=== PATIENT | female | born 2000 | race Caucasian/White ===

== ENCOUNTER → 2020-08-23 12:40 | Outpatient (CLI) | payer MEDICAID ==
[2020-08-23 15:27] LABS: NITRITE NEGATIVE (NEGATIVE)
[2020-08-23 15:28] LABS: BILIRUBIN NEGATIVE (NEGATIVE); KETONE MODERATE mg/dL (NEGATIVE); UROBILINOGEN NORMAL mg/dL (< 2)
== END | disposition home or self-care (01) ==
LOC: D.LDO 12:40
PROVIDERS: Student in an Organized Health Care Education/Training Program; ATTEND Obstetrics & Gynecology
DX: O36.8190 Decreased fetal movements, unspecified trimester, not applicable or unspecified (principal)

== ENCOUNTER 2020-08-27 09:28 | Outpatient (CLI) | payer MEDICAID | END 2020-08-27 10:25 | disposition home or self-care (01) | LOC: D.LDO 09:28 | PROVIDERS: ATTEND Obstetrics & Gynecology | DX: O40.9XX0 Polyhydramnios, unspecified trimester, not applicable or unspecified (principal) ==

== ENCOUNTER 2020-08-30 09:04 | Outpatient (CLI) | payer MEDICAID | END 2020-08-30 13:31 | disposition home or self-care (01) | LOC: D.LDO 09:04 | PROVIDERS: ATTEND Obstetrics & Gynecology | DX: O35.9XX0 Maternal care for (suspected) fetal abnormality and damage, unspecified, not applicable or unspecified (principal) ==

== ENCOUNTER → 2020-09-03 09:30 | Outpatient (CLI) | payer MEDICAID | END | disposition home or self-care (01) | LOC: D.LDO 09:30 | PROVIDERS: ATTEND Obstetrics & Gynecology | DX: O26.899 Other specified pregnancy related conditions, unspecified trimester (principal) ==

== ENCOUNTER 2020-09-26 09:45 | Outpatient (CLI) | payer MEDICAID | END 2020-09-26 10:36 | disposition home or self-care (01) | LOC: D.LDO 09:45 | PROVIDERS: ATTEND Obstetrics & Gynecology | DX: O36.8190 Decreased fetal movements, unspecified trimester, not applicable or unspecified (principal) ==

== ENCOUNTER 2020-09-27 10:11 | Outpatient (CLI) | payer MEDICAID ==
[2020-10-01 05:28] VITALS: BMI 45.0
== END 2020-09-27 14:02 | disposition home or self-care (01) ==
LOC: D.LDO 10:11
PROVIDERS: ATTEND Student in an Organized Health Care Education/Training Program
DX: O47.9 False labor, unspecified (principal)

== ENCOUNTER 2020-10-01 04:57 | Inpatient (IN) | payer MEDICAID ==
[~2020-10-01] VITALS: Ht 162.6 cm; Wt 118.8 kg
[2020-10-01 05:28] VITALS: BP 138/81; Ht 162.6 cm; Wt 118.8 kg
[2020-10-01 06:38] LABS: HEMATOCRIT 31.1 % (36.0-48.0); HEMOGLOBIN 9.4 g/dL (12-16); MCH 22.5 pg (26.0-34.0); MCHC 30.2 g/dL (31.0-37.0); MCV 74.4 fL (80.0-100.0); MEAN PLATELET VOLUME 11.6 fL (7.4-10.4); RBC 4.18 10x6/uL (4.00-5.40); RDW 15.7 % (11.5-14.5); WBC 9.8 10x3/uL (4.8-10.8)
[2020-10-01 06:41] LABS: UDS - AMPHET NEGATIVE QUAL (NEGATIVE); UDS - BARB NEGATIVE QUAL (NEGATIVE); UDS - BENZO NEGATIVE QUAL (NEGATIVE); UDS - COCAINE NEGATIVE QUAL (NEGATIVE); UDS - OPIATE NEGATIVE QUAL (NEGATIVE); UDS - PCP NEGATIVE QUAL (NEGATIVE); UDS - THC NEGATIVE QUAL (NEGATIVE)
[2020-10-02 08:13] LABS: RAPID PLASMA REAGIN Non Reactive (Non Reactive)
[2020-10-02 18:03] VITALS: BP 147/75
--- NOTE | 2020-10-02 18:05 | NUR ---
RECEIVED PT FROM PACU VIA BED. PT AWAKE, ALERT, ORIENTED X3. IV OF LR WITH PITOCIN INFUSING TO GRAVITY; PRBC INFUSING VIA IVP @ 125CC/HR. ABDOMINAL DRESSING INTACT WITHOUT DRAINAGE. KENNEDY CATHETER SECURED TO LEG WITH STAT LOCK DEVICE. KENNEDY DRAINING CONCENTRATED, DARK CLEAR URINE. SCD'S IN PLACE AND ATTACHED TO MACHINE; MACHINE CYCLING. PT AND ORIENTED TO ROOM. BED PLACED IN LOW POSITION WITH SIDE RAILS UP X2. CALL LIGHT WITHIN REACH.
[2020-10-02 19:00] VITALS: BP 141/87
[2020-10-02 19:10] VITALS: BP 140/83
--- NOTE | 2020-10-02 19:15 | NUR ---
REPORT GIVEN BY UDAY WHITFIELD.
[2020-10-02 19:20] VITALS: BP 141/81
--- NOTE | 2020-10-02 19:25 | NUR ---
WALKING ROUNDS DONE. PT C/O PAIN. INSTRUCTED PT TO PUSH HER REAL ESTATE SITE ANALYST BUTTON. INCISION LOOKS GOOD WITH NO DRAINAGE. FUNDUS FIRM. SCD'S IN PLACE. IV IS IN THE LEFT HAND. SHE HAD ONE UNIT OF BLOOD THAT IS NOW FINISHED. SHE IS NOW GETTING NS AT 125 HR. PT MOTHER IS STAYING WITH HER. CALL LIGHT IS WITHIN REACH AND SIDERAILS X 2 ARE UP.
[2020-10-02 19:45] VITALS: BP 140/81
--- NOTE | 2020-10-02 20:28 | NUR ---
PT IS BREAST FEEDING AT THIS TIME. NO C/O.
--- NOTE | 2020-10-02 22:00 | NUR ---
PT IN BED HOLDING HER BABY. BONDING BETWEEN THE TWO IS GREAT. PT STILL HAS HER KENNEDY CATHETER DRAINING AT BEDSIDE. PT IS USING HER PLUG WIRER, A MATTER OF FACT SHE HAS HER CELL PHONE ALARM SET FOR EVERY 10 MINUTES NOT TO MISS A DOSE. SHE STATES HER PAIN LEVEL IS A THREE. SHE IS MOVING ABOUT IN BED VERY WELL. SHE USES HER IS WHEN ASKED.
[2020-10-02 22:07] LABS: BASOPHILS 0 % (0-2); EOSINOPHILS 0 % (0-7); HEMATOCRIT 33.8 % (36.0-48.0); IMMATURE GRANULOCYTES 0.1 % (0-5); LYMPHOCYTE ABS# 1.58 10x3/uL (1.18-3.74); LYMPHOCYTES 18.4 % (15-50); MCH 30.4 pg (26.0-34.0); MEAN PLATELET VOLUME 10.8 fL (7.4-10.4); MONOCYTES 10.1 % (2-11); NEUTROPHIL ABS# 6.13 10x3/uL (1.56-6.13); NEUTROPHILS 71.4 % (40-80); PLATELET COUNT 295 10x3/uL (130-400); RBC 3.78 10x6/uL (4.00-5.40); RDW 13.6 % (11.5-14.5); WBC 8.6 10x3/uL (4.8-10.8)
[2020-10-02 22:14] LABS: HEMOGLOBIN 11.5 g/dL (12-16); MCV 89.4 fL (80.0-100.0)
[2020-10-03] VITALS (14 sets, daily range): BP systolic 121–145; BP diastolic 45–99
--- NOTE | 2020-10-03 | NUR ---
PT STILL HOLDING SLEEPING BABY. I SUGGESTED THAT SHE PUT THE BABY IN HIS CRIB AND SHE TRY TO GET SOME SLEEP. SHE STATES THAT ITS ALMOST TIME TO FEED HIM AGAIN. VS TAKEN AND RECORDED. PT IS DRINKING ALOT OF WATER. STATES HER MOUTH IS VERY DRY.
--- NOTE | 2020-10-03 02:00 | NUR ---
ROUNDS MADE. PT ASKED IF WOULD RETAPE HER IV. I TOOK ALL THE TAPE OFF AND RETAPED. IV SITE LOOKS GOOD. NO REDNESS.
--- NOTE | 2020-10-03 03:01 | NUR ---
PT MOTIONED FOR ME TO COME INTO HER ROOM. SHE STATED SHE THOUGHT HER IV HAD COME OUT A LITTLE AND COULD I RETAPE IT. SHE ALSO SAID SHE GOT HER HAND TANGLED IN A BLANKET AND THE WHOLE DRESSING FLIPPED BACK. WHEN I SAW THE IV SITE THE CATHETER WAS OUT. I TOLD HER THAT SINCE SHE HAS A RAKING MACHINE OPERATOR PUMP THAT WE'D NEED TO RESTART THE IV SO SHE COULD GET PAIN MEDS. SHE RELUNCTANTLY AGREED.
--- NOTE | 2020-10-03 03:45 | NUR ---
20 GAUGE IV CATHETER PLACED TO RIGHT FOREARM AT THIS TIME WITHOUT INCIDENT.
--- NOTE | 2020-10-03 04:00 | NUR ---
PT IS RESTING. BABY OUT OF ROOM TO THE NURSERY. VS TAKEN. NO C/O
--- NOTE | 2020-10-03 05:45 | NUR ---
KENNEDY BAG EMPTIED WITH 700 ML OBTAINED. THE URINE IS VERY CONCENTRATED WITH AN ODOR. PT WAS CLEANED UP IN HER ELY AREA. NEW PADS APPLIED BLEEDING SMALL. NO C/O AT THIS TIME. THE PROCESS TECH WAS UNABLE TO DRAW PT BLOOD AND ANOTHER PERSON WILL BE DOWN TO DRAW IT. PT IS GOING TO TRY TO GET SOME SLEEP NOW. SHE HAS HAD LITTLE REST TONIGHT.
[2020-10-03 07:03] LABS: LYMPHOCYTE ABS# 0.97 10x3/uL (1.18-3.74); MCH 22.7 pg (26.0-34.0); MCHC 30.6 g/dL (31.0-37.0); NEUTROPHIL ABS# 8.39 10x3/uL (1.56-6.13); RDW 15.9 % (11.5-14.5); WBC 10.3 10x3/uL (4.8-10.8)
[2020-10-03 07:12] LABS: HEMATOCRIT 24.5 % (36.0-48.0); HEMOGLOBIN 7.5 g/dL (12-16); MCV 74.2 fL (80.0-100.0); PLATELET COUNT 217 10x3/uL (130-400)
--- NOTE | 2020-10-03 07:15 | NUR ---
THIS RN TO ROOM FOR SHIFT ASSESSMENT. PT SITTING UP IN BED, HOLDING ON CHEST, AAOx3. PT DENIES PAIN OR ANY NEEDS. FRESH ICE WATER GIVEN. POC DISCUSSED, PT STATES SHE WOULD LIKE TO GET UP TO SHOWER SOON IF POSSIBLE. SHIFT ASSESSMENT COMPLETE, VSS, SEE FLOWSHEET FOR DOC. 20G PIV INFUSING TO RIGHT FA ORDERED, SITE C/D/I. NO SIGNS OF PHLEBITIS OR INFILTRATION. PT REPORTS COLLEGE COUNSELOR MANAGING PAIN WELL. ABD INCISION COVERED BY OCCLUSIVE DRESSING WHICH IS C/D/I. FF, ML, U/2. SMALL RUBRA LOCHIA, NO CLOTS. KENNEDY CATH DRAINING DARK YELLOW URINE TO BEDSIDE DRAINAGE. SCD'S ON LE BILAT. MOD GENERALIZED EDEMA NOTED TO LE BILAT, NONPITTING. PT INSTRUCTED TO REPORT ANY DIZZINESS OR NAUSEA, UNDERSTANDING VERBALIZED. INFANT PLACED BACK ON PT CHEST FROM [facility] PER REQUEST. SRUx2, CL IN REACH. PT MOTHER AT BEDSIDE.
--- NOTE | 2020-10-03 07:40 | NUR ---
DR DEVINE TO PT ROOM FOR ROUNDING, DISCUSSING POC. GIVES ORDER TO TRANSFUSE 2 UNITS PRBC. WILL ADVANCE PT DIET AND PO PAIN MEDS, BUT LEAVE KENNEDY IN PLACE AND WAIT TO AMBULATE AND SHOWER UNTIL AFTER BLOOD TRANSFUSION COMPLETE.
[2020-10-03 08:04] LABS: HYPOCHROMASIA OCC; LYMPHOCYTES 15 % (15-50); MONOCYTES 8 % (2-11); NEUTROPHILS 77 % (40-80); PLATELET ESTIMATE NORMAL
--- NOTE | 2020-10-03 08:30 | NUR ---
INTERMODAL DISPATCHER D/C'D AND WASTED WITH UDAY GARDUNO. PITOCIN INFUSION STOPPED PER ORDER WELL. IV FLUSHED WITH NS AND SALINE LOCKED.
--- NOTE | 2020-10-03 08:50 | NUR ---
FIRST UNIT PRBC INITIATED AT 0850, DOUBLE VERIFIED WITH LAUREEN RN. PRETRANSFUSION VSS, SEE TRANSFUSION RECORD FOR ALL VS DURING TRANSFUSION. PT INSTRUCTED ON S/S TO REPORT, UNDERSTANDING VERBALIZED, DENIES QUESTIONS. PT MOTHER AT BEDSIDE HOLDING INFANT. SRUx2, CL IN REACH.
--- NOTE | 2020-10-03 09:15 | NUR ---
THIS RN TO ROOM FOR PT CHECK. PT SITTING UP IN BED, TALKING ON PHONE. DENIES ANY S/S INSTRUCTED TO REPORT. VSS, SEE TRANSFUSION FLOWSHEET IN PAPER CHART. PT DENIES PAIN OR NEEDS. MOTHER AT BEDSIDE. SRUx2, CL IN REACH.
--- NOTE | 2020-10-03 09:47 | NUR ---
VS REMAIN STABLE, PT SITTING UP IN BED BURPING INFANT. BLOOD REMAINS INFUSING. PT DENIES ANY S/S. SRUx2, CL IN REACH. PT MOTHER AT BEDSIDE.
--- NOTE | 2020-10-03 10:30 | NUR ---
FIRST UNIT PRBC COMPLETED, SALINE SET TO FLUSH PIV. PT SHIVERING, STATES SHE "JUST FEELS COLD". VSS, NO FEVER, ORAL TEMP 98.0. PT DENIES FEELING SOB, HEART RACING OR ANY ITCHING. STATES SHE IS JUST COLD. WARM BLANKET PROVIDED. PT STATES SHE WOULD LIKE PAIN PILL SHE IS STARTING TO HURT DUE TO MOVEMENT WITH SHIVERING, RATES PAIN 3/10 BUT GETTING WORSE. NORCO ADMIN ORDERED FOR PAIN, SEE EMAR FOR DOC. PT DENIES FURTHER NEEDS. POC DISCUSSED. SRUx2, CL IN REACH. MOTHER REMAINS AT BEDSIDE.
--- NOTE | 2020-10-03 11:00 | NUR ---
THIS RN TO BEDSIDE WITH LAUREEN RN TO DOUBLE VERIFY SECOND UNIT PRBC. VERIFIED AND SIGNED OFF. PRETRANSFUSION VS OBTAINED AND NOTED TO BE ABNORMAL. CREAM SEPARATOR OPERATOR 131/85, RETAKEN AND NOTED TO BE 145/99. HR 127-145. RESP 22. PT CONTINUES SHIVERING/SHAKING AND C/O CHILLS. SECOND UNIT NOT SPIKED OR INITIATED, WILL NOTIFY
--- NOTE | 2020-10-03 11:05 | NUR ---
DR DEVINE PHONED AND REPORT GIVEN ON PT COMPLAINTS AND VS. STATES PT IS LIKELY HAVING TRANSFUSION REACTION, TO RETURN SECOND UNIT PRBC TO LAB TO HOLD, AND DRAW STAT CBC FROM ARM OPPOSITE OF PIV. NOTIFY HIM WITH LAB RESULTS.
--- NOTE | 2020-10-03 11:07 | NUR ---
PRBC RETURNED TO LAB WITH REPORT ON TRANSFUSION REACTION TO PREVIOUS UNIT PRBC. TRANSFUSION REACTION FORM OBTAINED, WILL FILL OUT AND OBTAIN APPROPRIATE SPECIMENS AND BLOOD BAG FOR LAB.
--- NOTE | 2020-10-03 11:15 | NUR ---
THIS RN TO ROOM FOR PT CHECK. PT SITTING UP, STATING SHE FEELS HOT. ORAL TEMP NOTED TO BE 100.0. BLANKETS REMOVED FROM PT. PT PALE AND DIAPHORETIC. PT STATES SHE FEELS NAUSEATED. EMESIS BAG GIVEN, PT VOMITS APPROX 50ML CLEAR LIQUID. PT STATES SHE FEELS BETTER AFTER VOMITING. DENIES SOB OR BACK PAIN, BUT STATES HER HEAD IS STARTING TO HURT. WILL NOTIFY LAB ON TRANFUSION REACTION FORM OF ALL S/S.
--- NOTE | 2020-10-03 11:30 | NUR ---
VS OBTAINED, BP 124/76, HR 144, RR 20, ORAL TEMP 99.0. PT STATES SHE IS FEELING BETTER OTHER THAN HER HEART RACING. 350 DARK YELLOW URINE EMPTIED FROM UROMETER. PT DENIES NEEDS. SRUx2, CL IN REACH.
--- NOTE | 2020-10-03 11:40 | NUR ---
THIS RN TO PT BEDSIDE TO OBTAIN POST REACTION LABS AND CBC ORDERED BY DR DEVINE. UA OBTAINED FROM KENNEDY CATH. UNABLE TO DRAW SERUM LABS x2 ATTEMPTS, WILL NOTIFY STONE MASON.
--- NOTE | 2020-10-03 11:53 | NUR ---
LAUREEN RN TO ROOM TO ASSIST WITH POST TRANSFUSION REACTION LAB DRAW.
--- NOTE | 2020-10-03 12:00 | NUR ---
VS OBTAINED AND NOTED TO BE BP 124/45, HR 142, RR 20, PULSE OX 96%, TEMP 99.0. PT DENIES NEEDS.
[2020-10-03 12:06] LABS: BASOPHILS 0 % (0-2); EOSINOPHILS 0.3 % (0-7); HEMATOCRIT 25.5 % (36.0-48.0); IMMATURE GRANULOCYTES 0.5 % (0-5); LYMPHOCYTE ABS# 0.37 10x3/uL (1.18-3.74); LYMPHOCYTES 9.9 % (15-50); MCH 23.1 pg (26.0-34.0); MCHC 31.4 g/dL (31.0-37.0); MCV 73.5 fL (80.0-100.0); MEAN PLATELET VOLUME 10.9 fL (7.4-10.4); MONOCYTES 6.4 % (2-11); NEUTROPHIL ABS# 3.11 10x3/uL (1.56-6.13); NEUTROPHILS 82.9 % (40-80); RBC 3.47 10x6/uL (4.00-5.40); RDW 15.9 % (11.5-14.5)
[2020-10-03 12:15] LABS: PLATELET COUNT 169 10x3/uL (130-400); WBC 3.8 10x3/uL (4.8-10.8)
--- NOTE | 2020-10-03 12:20 | NUR ---
100ML DARK YELLOW URINE EMPTIED FROM UROMETER. PT EATING CLEAR LIQUID LUNCH, DENIES NAUSEA. SRUx2, CL IN REACH.
--- NOTE | 2020-10-03 12:26 | NUR ---
DR DEVINE PHONED WITH CBC RESULTS POST TRANFUSION REACTION, UPDATED ON PT S/S AND VS. ORDER RECEIVED TO PREMEDICATE PT WITH 50MG BENADRYL PO x1 NOW AND 500MG TYLENOL PO x1 NOW, AND PROCEED WITH TRANSFUSING SECOND UNIT PRBC.
--- NOTE | 2020-10-03 12:29 | NUR ---
PT UPDATED ON POC, GIVES VERBAL CONSENT TO PROCEED WITH ANOTHER UNIT PRBC. WILL NOTIFY LAB.
--- NOTE | 2020-10-03 13:03 | NUR ---
BENADRYL AND TYLENOL ADMIN ORDERED FOR PREMED BEFORE NEXT UNIT PRBC. PT RATES PAIN APPROX 3-4/10, CRAMPING. DENIES ANY NEEDS. LAB PHONES AND GIVES UPDATE THAT NO HEMOLYTIC TRANSFUSION REACTION HAS BEEN FOUND ON PT WORKUP. NOTIFIED OF ORDER TO TRANFUSE ANOTHER UNIT PRBC AFTER PREMED HAS HAD TIME TO TAKE EFFECT. STATES SHE WILL WORK ON NEXT UNIT PRBC.
--- NOTE | 2020-10-03 14:40 | NUR ---
NEXT UNIT PRBC INITIATED AND DOUBLE VERIFIED WITH UDAY QUINTANA. VSS, SEE TRANSFUSION FLOWSHEET FOR DOC. PT DENIES ANY DIAZ, NAUSEA, CHILLS, BACK PAIN, HEART RACING, OR ANY OTHER S/S. PT INSTRUCTED TO REPORT ANY, UNDERSTANDING VERBALIZED. 350ML DARK YELLOW URINE EMPTIED FROM UROMETER. SRUx2, CL IN REACH. SIG OTHER AT BEDSIDE.
--- NOTE | 2020-10-03 15:30 | NUR ---
THIS RN TO ROOM FOR PT CHECK. PT DENIES ANY S/S. SITTING UP IN BED WITH INFANT ON CHEST. VSS, SEE FLOWSHEET. SRUx2, CL IN REACH. SIG OTHER AT BEDSIDE.
--- NOTE | 2020-10-03 16:00 | NUR ---
VS REMAIN STABLE, SEE TRANFUSION FLOWSHEET FOR VS DOC. PT DENIES S/S OR NEEDS, RESTING WITH EYES CLOSED.
--- NOTE | 2020-10-03 16:45 | NUR ---
PRBC TRANFUSION COMPLETED, PT CONTINUES TO DENY S/S. IV SET TO FLUSH WITH NS.
--- NOTE | 2020-10-03 16:55 | NUR ---
PT UP AMBULATING IN HALLS, RATES PAIN 5/10. PT REPORTS FEELING DIZZY, STATES SHE HAS NOT BEEN ABLE TO PASS GAS SINCE PROCEDURE. DR MELENDEZ PHONED WITH REPORT. ORDER RECEIVED FOR CBC IN AM, PT TO HAVE SCD'S ON LE BILAT WHEN IN BED, AND MAY HAVE SIMETHICONE 80MG Q4HPRN GAS PAIN. PT UPDATED ON POC. PT TO BED, SCD'S ON LE BILAT. SRUx2, CL IN REACH.
--- NOTE | 2020-10-03 17:00 | NUR ---
POST TRANFUSION VS COMPLETE, VSS, SEE TRANSFUSION FLOWSHEET. IV SALINE LOCKED.
--- NOTE | 2020-10-03 17:50 | NUR ---
VS REMAIN STABLE, SEE TRANSFUSION FLOWSHEET.
--- NOTE | 2020-10-03 18:07 | NUR ---
THIS RN TO ROOM FOR PT CHECK. PT DENIES S/S WITH PREVIOUS TRANSFUSION REACTION. RATES PAIN 3/10, STATES WOULD LIKE PAIN MED SOON FOR PLANS TO AMBULATE IF POSSIBLE, PAIN WORSE WITH MOVEMENT. PT ADMIN PRN NORCO ORDERED, SEE EMAR FOR DOC. FF, ML, U/2. SCANT TO SMALL RUBRA LOCHIA, NO CLOTS. 250ML DARK YELLOW URINE EMPTIED FROM UROMETER. KENNEDY BAG EMPTIED. PT STATES SHE MARIANO REG DIET FOR DINNER WELL, DENIES NAUSEA. 1 HOUR POST TRANSFUSION CBC ORDER ENTERED RECEIVED BY DR DEVINE. PT UPDATED ON POC. DENIES FURTHER NEEDS AT THIS TIME. SRUx2, CL IN REACH. SIG OTHER AT BEDSIDE.
[2020-10-03 18:42] LABS: BASOPHILS 0 % (0-2); EOSINOPHILS 0.2 % (0-7); HEMATOCRIT 27.2 % (36.0-48.0); HEMOGLOBIN 8.4 g/dL (12-16); IMMATURE GRANULOCYTES 0.4 % (0-5); LYMPHOCYTES 10.4 % (15-50); MCH 23.1 pg (26.0-34.0); MCHC 30.9 g/dL (31.0-37.0); MCV 74.9 fL (80.0-100.0); MEAN PLATELET VOLUME 11.2 fL (7.4-10.4); MONOCYTES 7.9 % (2-11); NEUTROPHIL ABS# 3.92 10x3/uL (1.56-6.13); NEUTROPHILS 81.1 % (40-80); PLATELET COUNT 195 10x3/uL (130-400); RBC 3.63 10x6/uL (4.00-5.40); RDW 16.4 % (11.5-14.5)
[2020-10-03 18:43] LABS: WBC 4.8 10x3/uL (4.8-10.8)
--- NOTE | 2020-10-03 19:18 | NUR ---
DR DEVINE PHONED WITH REPORT ON POST TRANSFUSION CBC AND THAT PT DID NOT HAVE REACTION. URINE OUTPUT REPORTED AND THAT PT TOLERATED REG DIET FOR DINNER. PAIN WELL CONTROLLED. ORDER RECEIVED FOR CBC AT 0500 TOMORROW, AND TO D/C KENNEDY AND PT MAY AMBULATE AND SHOWER. ORDER RECEIVED FOR PM SHIFT TO NOTIFY CHARACTER IMPERSONATOR PHYSICIAN FOR TACHYCARDIA OR ANY CONCERNS.
--- NOTE | 2020-10-03 19:34 | NUR ---
PT BOTTLE FEEDING INFANT AT THIS TIME, INFORMED PT THAT I WILL BE BACK SHORTLY TO DO ASSESSMENT, PT VERBALIZES UNDERSTANDING, DENIES NEEDS AT THIS TIME
--- NOTE | 2020-10-03 20:30 | NUR ---
ASSESSMENT PER FLOW SHEET, VS OBTAINED, SALINE LOCK TO RIGHT FA INTACT WITH NO REDNESS OR EDEMA, FF, ML, U/2, SMALL BLEEDING NOTED WITH NO CLOTS, BIKINI LINE INCISION WITH SWETHA CDI WITH NO DRAINAGE, PT EDUCATED ON INC CARE, VERBALIZES UNDERSTANDING, KENNEDY CATH REMOVED, TIP INTACT, EMPTIED 600MLS OF DARK YELLOW URINE, PT INST ON WHEN TO VOID AND TO DRINK PLENTY OF FLUIDS, PT VERBALIZES UNDERSTANDING, PT REPORTS FLATUS, SCD'S REMOVED FOR SHOWER, FOB HOLDING
--- NOTE | 2020-10-03 21:00 | NUR ---
PT UP TO SHOWER WITH ASSISTANCE, GAIT STEADY, DENIES ANY DIZZYNESS OR LIGHTHEADEDNESS, SALINE LOCK COVERED, PT TO SHOWER, ALL TOWELS AND TOILETRIES PROVIDED, PT INST TO USE CALL LIGHT IN BR FOR ANY ASSISTANCE, SHOWER CHAIR IN SHOWER FOR PT, COMPLETE BEDDING CHANGED, TRASH REMOVED, FRESH H20 SERVED, INFANT IN OPEN CRIB CART AT THIS TIME, FOB TO BR WITH PT
--- NOTE | 2020-10-03 21:34 | NUR ---
PT OUT OF SHOWER, DRESSED IN OWN CLOTHES, FOB PLACING SOCKS ON PT, PT REPORTS THAT SHE IS GOING TO TAKE A LITTLE WALK HERE SHORTLY, PT DENIES NEEDS OR PAIN AT THIS TIME
--- NOTE | 2020-10-03 22:15 | NUR ---
PT AMB IN SALAZAR, GAIT STEADY, WITH MOM AND INFANT IN OPEN CRIB CART
--- NOTE | 2020-10-03 22:30 | NUR ---
PT BACK TO ROOM, SALINE LOCK FLUSHED, DENIES NEEDS OR PAIN AT THIS TIME
[2020-10-04 00:02] VITALS: BP 110/77
--- NOTE | 2020-10-04 00:02 | NUR ---
PT GAS REVERSER LIGHT, REPORTS VOIDING AND NEED FOR PAIN MED, VS OBTAINED, ADM NORCO AND MOTRIN PER MD ORDERS, SEE EMAR, WITH FRESH H20, SCD'S PLACED BACK ON AND WORKING PROPERLY, EMPTIED 300 MLS OF LIGHTLY BLOOD TINGED URINE FROM URINAL, PT DENIES FURTHER NEEDS, INFANT IN OPEN CRIB CART AND PTS MOM AT BEDSIDE
--- NOTE | 2020-10-04 02:07 | NUR ---
PT AWAKE, BOTTLE FEEDING , DENIES NEEDS OR PAIN AT THIS TIME, PT'S MOM AT BEDSIDE
--- NOTE | 2020-10-04 04:10 | NUR ---
PT AWAKE, BOTTLE FEEDING , INST PT TO USE CALL LIGHT WHEN FINISHED AND I WILL COME BACK TO DO VS, PT VERBALIZES UNDERSTANDING, DENIES NEEDS AT THIS TIME, PT'S MOM ASLEEP AT BEDSIDE
[2020-10-04 04:38] VITALS: BP 117/64
--- NOTE | 2020-10-04 04:38 | NUR ---
PT MERCHANDISE TEAM MANAGER LIGHT, PT FINISHED FEEDING INFANT, VS OBTAINED, SCD'S DISCONNECTED, PT UP TO BR WITH ASSISTANCE, GAIT STEADY, VOIDED 700MLS OF LIGHTLY BLOOD TINGED URINE BY SELF WITH NO DIFFICULTY, PT BACK TO BED, REQUESTS SCD'S OFF AT THIS TIME, TO PT'S ARMS, PT DENIES NEED FOR PAIN MED AT THIS TIME, BED IN LOW POSITION, SIDE RAILS X 2, CALL LIGHT IN REACH
--- NOTE | 2020-10-04 06:23 | NUR ---
PT RESTING WITH EYES CLOSED, RESP QUIET, NO DISTRESS NOTED, LEFT UNDISTURBED AT THIS TIME, IN OPEN CRIB CART AND PT'S MOM ASLEEP AT BEDSIDE
[2020-10-04 06:32] LABS: BASOPHILS 0.2 % (0-2); EOSINOPHILS 1.5 % (0-7); HEMATOCRIT 27.2 % (36.0-48.0); HEMOGLOBIN 8.4 g/dL (12-16); IMMATURE GRANULOCYTES 0.4 % (0-5); LYMPHOCYTE ABS# 1.04 10x3/uL (1.18-3.74); LYMPHOCYTES 19.5 % (15-50); MCH 23.2 pg (26.0-34.0); MCHC 30.9 g/dL (31.0-37.0); MCV 75.1 fL (80.0-100.0); MEAN PLATELET VOLUME 11.2 fL (7.4-10.4); MONOCYTES 12.4 % (2-11); NEUTROPHIL ABS# 3.53 10x3/uL (1.56-6.13); PLATELET COUNT 213 10x3/uL (130-400); RBC 3.62 10x6/uL (4.00-5.40); RDW 16.5 % (11.5-14.5); WBC 5.3 10x3/uL (4.8-10.8)
--- NOTE | 2020-10-04 07:00 | NUR ---
REPORT RECEIVED FROM Fabián HERRERA RN.
--- NOTE | 2020-10-04 07:50 | NUR ---
DR. DEVINE HERE TO SEE PT.
[2020-10-04 08:00] VITALS: BP 129/72
--- NOTE | 2020-10-04 08:20 | NUR ---
TO ROOM FOR ASSESSMENT. SEE FLOWSHEET. PT SITTING UP IN BED EATING BREAKFAST. PT. MOTHER AT BEDSIDE WITH IN ARMS. INQUIRED ABOUT PT. PAIN. PT STATES SHE ONLY HAS A HEADACHE. OFFERED PAIN MEDICATION. PT STATES SHE WOULD LIKE MOTRIN, BUT NO NORCO AT THIS TIME.
--- NOTE | 2020-10-04 08:49 | NUR ---
PT AMBULATING IN SALAZAR PUSHING BABY IN CRIB WITH MOTHER AT BEDSIDE. PT STEADY WITHOUT C/O DIZZINESS. PT MADE 3 LAPS AROUND UNIT AND TOLERATED WELL.
[2020-10-04 12:27] VITALS: BP 120/63
--- NOTE | 2020-10-04 12:30 | NUR ---
TO ROOM FOR VS. PT SITTING UP IN BED WATCHING TV. INQUIRED ABOUT PAIN. PT STATES SHE STILL HAS A HEADACHE. OFFERED MOTRIN. PT STATES MOTRIN DID NOT HELP MUCH WITH LAST DOSE. NO OTHER NEEDS VOICED AT THIS TIME.
--- NOTE | 2020-10-04 15:13 | NUR ---
ATTEMPTED TO FLUSH SALINE LOCK. UNABLE TO FLUSH. IV D/C'D. CATHETER INTACT. BRUISING NOTED ON FOREARM ON EITHER SIDE OF INSERTION SITE. PT DENIES TENDERNESS. PT REQUESTS PAIN MEDICATION FOR HEADACHE.
--- NOTE | 2020-10-04 18:03 | NUR ---
PT SITTING UP IN CHAIR FEEDING BABY. PT STATES GOOD PAIN RELIEF WITH NORCO AND NOTRIN FOR HEADCACHE. NO OTHER NEEDS OR CONCERNS VOICED AT THIS TIME.
--- NOTE | 2020-10-04 19:00 | NUR ---
REPORT GIVEN BY UDAY WHITFIELD
--- NOTE | 2020-10-04 19:10 | NUR ---
WALKING ROUNDS MADE. MET FOB. NO C/O AT THIS TIME
[2020-10-04 20:00] VITALS: BP 149/83
--- NOTE | 2020-10-04 20:00 | NUR ---
ASSESSMENT COMPLETED. PT IS DRESSED AND UP AD CHELIS. NO IV ACCESS. EATING WELL, VOIDING AND BM OK. VS STABLE. SWETHA TO LTI CLEAN AND DRY. PT HAS NO C/O PAIN. BLEEDING IS SMALL. HER H&H WAS WNL THIS MORING. SHE WILL HAVE BLOOD DRAWN AGAIN TOMORROW. FOB IS IN THE ROOM. HE IS SCARED TO HOLD THE BABY STATING HE'S TOO FRAGILE. I TOLD HIM I WAS GOING TO HAVE HIM HOLD THE BABY NOW AND HE TOOK HIM. HE WAS NERVOUS AND TENSE AND I TOLD HIM TO TAKE A COUPLE OF DEEP BREATHES AND ENJOY THE MOMENT. HE HAS YET TO CHANGE THE BABY. I TOLD HIM THAT HE NEEDED TO FEED THE BABY AND CHANGE HIM SO HE COULD HAVE HELP WHILE WE WERE HERE TO HELP HIM. HE JUST LOOKED AT ME.
--- NOTE | 2020-10-04 20:45 | NUR ---
IN PT ROOM TO TAKE HER PAIN MEDS FOR A HEADACHE. THE BABY WAS RESTING ON DAD'S THIGHS WHILE DAD WAS PLAYING GAMES ON THE TELEPHONE. AFTER A CONVERSATION I PLACED THE BABY ON HIS CHEST. THE BABY SNUGGLED IN AND WAS RESTING WELL. ASKED PT TO LET ME KNOW IF SHE NEEDED ANYTHING ELSE.
--- NOTE | 2020-10-04 23:00 | NUR ---
PT WAS TALKING TO NURSERY NURSE WHEN I WENT IN TO ASSESS HER PAIN LEVEL. PT WAS HOLDING THE BABY. SHE STATES HER PAIN IS MUCH BETTER RATING IT A 3.
[2020-10-05] VITALS: BP 126/66
--- NOTE | 2020-10-05 | NUR ---
IN FOR VS. NO C/O
--- NOTE | 2020-10-05 02:03 | NUR ---
PT RESTING WELL. NO C/O FOR NOW. NO NEEDS.
--- NOTE | 2020-10-05 04:00 | NUR ---
PT ASLEEP. DID NOT WAKE PT.
--- NOTE | 2020-10-05 06:19 | NUR ---
PT IS RESTING QUIETLY AT THIS TIME. NO C/O AT THIS TIME
--- NOTE | 2020-10-05 09:30 | NUR ---
AM ASSESSMENT COMPLETED CHARTED ON FLOWSHEET. FUNDUS FIRM AT U/U WITH LIGHT BLEEDING NOTED, NO CLOTS WITH MASSAGE. BIKINI INCISION WITH SWETHA IN PLACE IS NOTED TO BE CLEAN AND DRY. RATES PAIN AT 5-6/10 AND IS REQUESTING MOTRIN FOR A HEADACHE. NO OTHER NEEDS AT THIS TIME.
--- NOTE | 2020-10-05 09:47 | NUR ---
MOTRIN GIVEN ORDERED WITH LARGE ICE WATER.
[2020-10-05] MEDS ORDERED: IBUPROFEN600 MG PO (10:08)
[2020-10-05] MEDS ORDERED: HYDROCODON-ACE1 EA10 PO (10:08)
--- NOTE | 2020-10-05 10:53 | NUR ---
PT CALLS OUT ASKING FOR PAIN MED. NORCO 10/325MG GIVEN SCANNED TO EMAR. PT ALSO GIVEN LARGE CUP OF ICE WITH DR OTTO. CONTINUE TO C/O OF HEADACHE THAT SHE RATES AT 4/10. STATES SHE HAS HAD THEM THOUGH OUT HER AND BEFORE.
--- NOTE | 2020-10-05 11:19 | NUR ---
VERBAL AND WRITTEN DISCHARGE ORDERS GONE OVER WITH PT, SHE IS ALSO GIVEN A WRITTEN SCRIPT FOR NORCO 10/325MG AND MOTRIN 600MG WITH INFO ON EACH MED. STATES HER UNDERSTANDING TO S/S OF INFECTION AND WHAT TO DO. DENIES QUESTIONS OR CONCERNS. WILL CALL FOR WHEELCHAIR AFTER INFANT D/C HAS BEEN COMPLETED.
--- NOTE | 2020-10-05 12:30 | NUR ---
TAKEN OUT TO CAR WITH SECURED IN TO [employer]. HOME BY PRIVATE CAR WITH SPOUSE.
== END 2020-10-05 12:31 | disposition home or self-care (01) | DRG 788 ==
LOC: D.LD 04:57 → D.WS 04:57
PROVIDERS: ADMIT Obstetrics & Gynecology; ATTEND Obstetrics & Gynecology
PROC: 10D00Z1 Extraction of Products of Conception, Low, Open Approach (ICD-10-PCS; principal; 2020-10-02 15:00)
DX: O61.0 Failed medical induction of labor (principal); O40.3XX0 Polyhydramnios, third trimester, not applicable or unspecified; Z3A.39 39 weeks gestation of pregnancy; Z37.0 Single live birth